=== PATIENT | female | born 1985 | race Caucasian/White ===

== ENCOUNTER 2017-11-28 13:03 | Emergency (ER) | payer BC ==
[2017-11-28 13:05] VITALS: BP 115/66; PULSE 82; RESP 18; TEMP 98.6; O2SAT 98
[2017-11-28 14:21] LABS: AUTOMATED NEUTROPHIL # 4.6 TH/MM3 (1.8-7.7); BASOPHIL # 0.1 TH/MM3 (0-0.2); EOSINOPHIL # 0.3 TH/MM3 (0-0.4); HEMATOCRIT 43.1 % (35.0-46.0); HEMOGLOBIN 14.3 GM/DL (11.6-15.3); LYMPH % 27.6 % (9.0-44.0); MEAN CELL VOLUME 84.2 FL (80.0-100.0); MEAN CORPUSCULAR HEMOGLOBIN 27.9 PG (27.0-34.0); MEAN CORPUSCULAR HGB CONC 33.1 % (32.0-36.0); MEAN PLATELET VOLUME 8.7 FL (7.0-11.0); MONOCYTE # 0.4 TH/MM3 (0-0.9); NEUT % 62.4 % (16.0-70.0); PLATELET COUNT 257 TH/MM3 (150-450); RED BLOOD COUNT 5.12 MIL/MM3 (4.00-5.30); RED CELL DISTRIBUTION WIDTH 13.3 % (11.6-17.2); WHITE BLOOD COUNT 7.3 TH/MM3 (4.0-11.0)
[2017-11-28 14:27] LABS: BACTERIA, URINE RARE /hpf; BILIRUBIN, URINE NEG (NEG); BLOOD, URINE LARGE (NEG); GLUCOSE,URINE NEG (NEG); KETONE, URINE NEG (NEG); MUCUS URINE FEW /lpf (OCC); NITRITE,URINE NEG (NEG); PH, URINE 6.5 (5.0-8.5); SQUAMOUS EPITHELIAL CELL URINE 5 /hpf (0-5); URINE COLOR LIGHT-YELLOW (YELLW/STRAW); URINE LEUKOCYTE ESTERASE NEG (NEG)
--- NOTE | 2017-11-28 15:28 | PD ---
HPI . Vaginal bleeding Chief Complaint: Bleeding Time Seen by Provider: 15:14 Travel History International Travel<30 days: No Contact w/Intl Traveler<30days: No Traveled to known affect area: No History of Present Illness HPI This patient presents with a chief complaint of vaginal bleeding. Onset was 3 years ago. She states that she has prolonged periods every month. She states that she has been seen by 3 different information technology audit manager and that all they do is ultrasounds. She is frustrated with gynecology and presents to us hoping that we will give her an answer as to why she bleeds heavily and for prolonged periods of time with each menstrual cycle. There has been no change in the pattern of her menses. No modifying factors. PFSH Past Medical History LMP: CURRENT Social History Tobacco Use: No Allergies-Medications (Allergen,Severity, Reaction): Coded Allergies: Penicillins (Verified Allergy, Severe, 11/28/17) latex (Verified Allergy, Severe, 11/28/17) nitrofurantoin (Verified Allergy, Severe, 11/28/17) morphine (Verified Allergy, Intermediate, Swelling, 11/28/17) Review of Systems Except as stated in HPI: all other systems reviewed are Neg Genitourinary: Positive: Dyspareunia, Dysmenorrhea, Menorrhagia, Vaginal Bleeding Physical Exam Narrative GENERAL: Awake and alert. Visibly frustrated. SKIN: Warm and dry. Normal color and turgor. HEAD: Normocephalic/atraumatic. EYES: Pupils are equal. Extraocular movements are intact. NECK: Normal range of motion. CARDIOVASCULAR: Regular rate and rhythm. RESPIRATORY: Nonlabored respirations. ABDOMEN: Soft with suprapubic tenderness. MUSCULOSKELETAL: Atraumatic. NEUROLOGICAL: Nonfocal. PSYCHIATRIC: Appropriate mood and affect. Data Data Last Documented VS Vital Signs Date Time Temp Pulse Resp B/P (MAP) Pulse Ox O2 Delivery O2 Flow Rate FiO2 11/28/17 13:05 98.6 82 18 115/66 (82) 98 Room Air Orders Orders Complete Blood Count With Diff (11/28/17 13:15) Basic Metabolic Panel (Bmp) (11/28/17 13:15) Urinalysis - C+S If Indicated (11/28/17 13:15) Ed Urine Pregnancytest Poc (11/28/17 13:15) Ed Discharge Order (2/13/18 15:21) Labs Laboratory Tests Test 11/28/17 13:40 White Blood Count 7.3 TH/MM3 Red Blood Count 5.12 MIL/MM3 Hemoglobin 14.3 GM/DL Hematocrit 43.1 % Mean Corpuscular Volume 84.2 FL Mean Corpuscular Hemoglobin 27.9 PG Mean Corpuscular Hemoglobin Concent 33.1 % Red Cell Distribution Width 13.3 % Platelet Count 257 TH/MM3 Mean Platelet Volume 8.7 FL Neutrophils (%) (Auto) 62.4 % Lymphocytes (%) (Auto) 27.6 % Monocytes (%) (Auto) 5.0 % Eosinophils (%) (Auto) 4.0 % Basophils (%) (Auto) 1.0 % Neutrophils # (Auto) 4.6 TH/MM3 Lymphocytes # (Auto) 2.0 TH/MM3 Monocytes # (Auto) 0.4 TH/MM3 Eosinophils # (Auto) 0.3 TH/MM3 Basophils # (Auto) 0.1 TH/MM3 CBC Comment DIFF FINAL Differential Comment Urine Color LIGHT-YELLOW Urine Turbidity CLEAR Urine pH 6.5 Urine Specific [place] 1.007 Urine Protein NEG mg/dL Urine Glucose (UA) NEG mg/dL Urine Ketones NEG mg/dL Urine Occult Blood LARGE Urine Nitrite NEG Urine Bilirubin NEG Urine Urobilinogen LESS THAN 2.0 MG/DL Urine Leukocyte Esterase NEG Urine RBC LESS THAN 1 /hpf Urine WBC 3 /hpf Urine Squamous Epithelial Cells 5 /hpf Urine Bacteria RARE /hpf Urine Mucus FEW /lpf Microscopic Urinalysis Comment CULT NOT INDICATED MDM Medical Decision Making Medical Screen Exam Complete: Yes Emergency Medical Condition: Yes Differential Diagnosis Differential diagnosis of vaginal bleeding includes but is not limited to dysfunctional uterine bleeding, normal menstrual cycle, ectopic , spontaneous AB, PID. Narrative Course This patient presents with a 3 year history of menorrhagia. She is hemodynamically stable. Her test is negative. CBC Diagram 11/28/17 13:40 The history, exam, diagnostic testing, and current condition do not suggest any significant pathology to warrant further testing, continued ED treatment, admission, or surgical evaluation at this point. No EMC was found. The patient 's condition is stable and appropriate for discharge. Diagnosis Primary Impression: Dysfunctional uterine bleeding Patient Instructions: General Instructions Departure Forms: Tests/Procedures Additional Instructions: This is a gynecological problem that needs to be taken care of by a information technology audit manager Disposition: 01 DISCHARGE HOME Condition: Stable Vita Buenrostro MD Nov 28, 2017 15:28
[2017-11-28 15:31] LABS: BICARBONATE 29.5 MEQ/L (21.0-32.0); CALCIUM 9.7 MG/DL (8.5-10.1); CREATININE 0.88 MG/DL (0.50-1.00)
== END 2017-11-28 15:30 | disposition home or self-care (01) ==
LOC: NEPD 13:03
DX: N93.8 Other specified abnormal uterine and vaginal bleeding (principal); Z88.0 Allergy status to penicillin; Z88.5 Allergy status to narcotic agent; Z91.040 Latex allergy status
CPT/HCPCS: 80048; 81001; 84703; 85025; 99283